=== PATIENT | male | born 1945 | race American Indian/Alaskan Native ===

== ENCOUNTER 2020-07-21 18:02 | Emergency (ER) | payer MEDICARE ==
[2020-07-21] MEDS ORDERED: SODIUM CHLORIDE 0.9% 1000 ML IV SOLN IV ONE (20:27)
--- NOTE | 2020-07-21 20:33 | Emergency Department Report ---
ED Altered Mental Status HPI - General Chief Complaint: Altered Mental Status Stated Complaint: AMS Time Seen by Provider: 07/21/20 20:05 Source: EMS Mode of arrival: Stretcher Limitations: Altered Mental Status - History of Present Illness Initial Comments: 74-year-old male unknown past medical history, presents to ED via EMS. EMS reports patient suffered a fall 2 weeks ago, and has had altered mental status since. It is unclear what patient's baseline mental status is. Patient is alert, however he is confused, poor historian. There is not currently any family information available. MD Complaint: altered mental status -: week(s) (2) Severity: Unable to Determine Consistency of Symptoms: unknown - Related Data Allergies Allergy/AdvReac Type Severity Reaction Status Date / Time Unable to Assess Allergy Unverified 07/21/20 20:10 ED Review of Systems ROS: Stated complaint: AMS Other details as noted in HPI Comment: Unobtainable due to pts medical conditions (Patient is confused) ED Physical Exam - General Limitations: Altered Mental Status General appearance: alert, in no apparent distress - Head Head exam: Present: atraumatic, normocephalic - Eye Eye exam: Present: normal appearance, EOMI - ENT ENT exam: Present: mucous membranes dry - Neck Neck exam: Present: normal inspection - Respiratory Respiratory exam: Present: normal lung sounds bilaterally. Absent: respiratory distress - Cardiovascular Cardiovascular Exam: Present: normal rhythm, tachycardia - GI/Abdominal GI/Abdominal exam: Present: soft. Absent: distended, tenderness - Extremities Exam Extremities exam: Present: normal inspection, other (moving all extremities except right leg; pain with passive movement of right leg) - Neurological Exam Neurological exam: Present: alert, altered. Absent: oriented X3 (oriented to self) - Psychiatric Psychiatric exam: Present: normal affect, normal mood - Skin Skin exam: Present: warm, dry, intact, normal color ED Course Vital Signs 07/21/20 07/21/20 07/21/20 19:44 20:01 20:21 Temperature Pulse Rate 112 H 116 H 109 H Respiratory 19 13 20 Rate Blood Pressure Blood Pressure 136/92 [Right] O2 Sat by Pulse 100 Oximetry 07/21/20 07/21/20 07/21/20 20:31 21:01 21:31 Temperature 97.7 F Pulse Rate 116 H 106 H 108 H Respiratory 17 13 14 Rate Blood Pressure 136/92 136/92 136/92 Blood Pressure [Right] O2 Sat by Pulse Oximetry 07/21/20 07/21/20 07/21/20 22:01 23:07 23:31 Temperature Pulse Rate 108 H Respiratory 16 15 Rate Blood Pressure 136/92 136/92 120/68 Blood Pressure [Right] O2 Sat by Pulse 95 100 Oximetry 07/22/20 02:21 Temperature Pulse Rate Respiratory 18 Rate Blood Pressure Blood Pressure [Right] O2 Sat by Pulse Oximetry - Reevaluation(s) Reevaluation #1: 07/21/20 21:50 Contact phone number listed on chart ([phone]) is disconnected. - Consultations Consultation #1: 07/22/20 01:[address] Payton, on-call [place] physician. Would like repeat lactic acid level. 07/22/20 01:54 Dr. Payton aware of repeat lactic acid of 3.7. I also informed her that we do not have orthopedic surgery on-call. States she will contact [employer] and call back. 07/22/20 03:[address] Payton. They will accept transfer to [facility]. Dr. Fisher will be accepting physician. - Lab Data Result diagrams: 07/21/20 21:01 07/21/20 21:01 Lab Results 07/21/20 07/21/20 07/21/20 Range/Units 21:01 21:01 21:01 WBC 13.6 H (4.5-11.0) K/mm3 RBC 5.14 H (3.65-5.03) M/mm3 Hgb 12.2 (11.8-15.2) gm/dl Hct 38.9 (35.5-45.6) % MCV 76 L (84-94) fl MCH 24 L (28-32) pg MCHC 31 L (32-34) % RDW 17.8 H (13.2-15.2) % Plt Count 349 (140-440) K/mm3 Lymph % (Auto) 12.1 L (13.4-35.0) % Forrest % (Auto) 6.1 (0.0-7.3) % Eos % (Auto) 0.0 (0.0-4.3) % Baso % (Auto) 0.6 (0.0-1.8) % Lymph # (Auto) 1.7 (1.2-5.4) K/mm3 Forrest # (Auto) 0.8 (0.0-0.8) K/mm3 Eos # (Auto) 0.0 (0.0-0.4) K/mm3 Baso # (Auto) 0.1 (0.0-0.1) K/mm3 Seg Neutrophils % 81.2 H (40.0-70.0) % Seg Neutrophils # 11.1 H (1.8-7.7) K/mm3 APTT (24.2-36.6) Sec. Sodium 156 H (137-145) mmol/L Potassium 4.2 (3.6-5.0) mmol/L Chloride 113.7 H (98-107) mmol/L Carbon Dioxide 23 (22-30) mmol/L Anion Gap 24 mmol/L BUN 33 H (9-20) mg/dL Creatinine 0.9 (0.8-1.3) mg/dL Estimated GFR > 60 ml/min BUN/Creatinine Ratio 37 % Glucose 486 H (75-100) mg/dL POC Glucose (70-105) mg/dL Lactic Acid 4.40 H* (0.7-2.0) mmol/L Calcium 9.6 (8.4-10.2) mg/dL Total Bilirubin 0.30 (0.1-1.2) mg/dL AST 21 (5-40) units/L ALT 24 (7-56) units/L Alkaline Phosphatase 153 H (35-129) units/L Troponin T 0.076 H (0.00-0.029) ng/mL Total Protein 7.4 (6.3-8.2) g/dL Albumin 3.5 L (3.9-5) g/dL Albumin/Globulin Ratio 0.9 % Triglycerides 140 (2-149) mg/dL Cholesterol 182 (50-199) mg/dL LDL Cholesterol Direct 78 (50-130) mg/dL HDL Cholesterol 69 H (40-59) mg/dL Cholesterol/HDL Ratio 2.63 % Urine Color (Yellow) Urine Turbidity (Clear) Urine pH (5.0-7.0) Ur Specific [place] (1.003-1.030) Urine Protein (Negative) mg/dL Urine Glucose (UA) (Negative) mg/dL Urine Ketones (Negative) mg/dL Urine Blood (Negative) Urine Nitrite (Negative) Urine Bilirubin (Negative) Urine Urobilinogen (<2.0) mg/dL Ur Leukocyte Esterase (Negative) Urine WBC (Auto) (0.0-6.0) /HPF Urine RBC (Auto) (0.0-6.0) /HPF Urine Bacteria (Auto) (Negative) /HPF Hyaline Casts /LPF Urine Mucus /HPF 07/21/20 07/21/20 07/22/20 Range/Units 21:01 21:50 00:59 WBC (4.5-11.0) K/mm3 RBC (3.65-5.03) M/mm3 Hgb (11.8-15.2) gm/dl Hct (35.5-45.6) % MCV (84-94) fl MCH (28-32) pg MCHC (32-34) % RDW (13.2-15.2) % Plt Count (140-440) K/mm3 Lymph % (Auto) (13.4-35.0) % Forrest % (Auto) (0.0-7.3) % Eos % (Auto) (0.0-4.3) % Baso % (Auto) (0.0-1.8) % Lymph # (Auto) (1.2-5.4) K/mm3 Forrest # (Auto) (0.0-0.8) K/mm3 Eos # (Auto) (0.0-0.4) K/mm3 Baso # (Auto) (0.0-0.1) K/mm3 Seg Neutrophils % (40.0-70.0) % Seg Neutrophils # (1.8-7.7) K/mm3 APTT 27.1 (24.2-36.6) Sec. Sodium (137-145) mmol/L Potassium (3.6-5.0) mmol/L Chloride (98-107) mmol/L Carbon Dioxide (22-30) mmol/L Anion Gap mmol/L BUN (9-20) mg/dL Creatinine (0.8-1.3) mg/dL Estimated GFR ml/min BUN/Creatinine Ratio % Glucose (75-100) mg/dL POC Glucose (70-105) mg/dL Lactic Acid 3.70 H* (0.7-2.0) mmol/L Calcium (8.4-10.2) mg/dL Total Bilirubin (0.1-1.2) mg/dL AST (5-40) units/L ALT (7-56) units/L Alkaline Phosphatase (35-129) units/L Troponin T (0.00-0.029) ng/mL Total Protein (6.3-8.2) g/dL Albumin (3.9-5) g/dL Albumin/Globulin Ratio % Triglycerides (2-149) mg/dL Cholesterol (50-199) mg/dL LDL Cholesterol Direct (50-130) mg/dL HDL Cholesterol (40-59) mg/dL Cholesterol/HDL Ratio % Urine Color Yellow (Yellow) Urine Turbidity Clear (Clear) Urine pH 5.0 (5.0-7.0) Ur Specific [place] 1.033 H (1.003-1.030) Urine Protein 30 mg/dl (Negative) mg/dL Urine Glucose (UA) >=500 (Negative) mg/dL Urine Ketones 20 (Negative) mg/dL Urine Blood Sm (Negative) Urine Nitrite Neg (Negative) Urine Bilirubin Neg (Negative) Urine Urobilinogen 2.0 (<2.0) mg/dL Ur Leukocyte Esterase Neg (Negative) Urine WBC (Auto) 1.0 (0.0-6.0) /HPF Urine RBC (Auto) 2.0 (0.0-6.0) /HPF Urine Bacteria (Auto) 1+ (Negative) /HPF Hyaline Casts 3 /LPF Urine Mucus Few /HPF 07/22/20 Range/Units 01:42 WBC (4.5-11.0) K/mm3 RBC (3.65-5.03) M/mm3 Hgb (11.8-15.2) gm/dl Hct (35.5-45.6) % MCV (84-94) fl MCH (28-32) pg MCHC (32-34) % RDW (13.2-15.2) % Plt Count (140-440) K/mm3 Lymph % (Auto) (13.4-35.0) % Forrest % (Auto) (0.0-7.3) % Eos % (Auto) (0.0-4.3) % Baso % (Auto) (0.0-1.8) % Lymph # (Auto) (1.2-5.4) K/mm3 Forrest # (Auto) (0.0-0.8) K/mm3 Eos # (Auto) (0.0-0.4) K/mm3 Baso # (Auto) (0.0-0.1) K/mm3 Seg Neutrophils % (40.0-70.0) % Seg Neutrophils # (1.8-7.7) K/mm3 APTT (24.2-36.6) Sec. Sodium (137-145) mmol/L Potassium (3.6-5.0) mmol/L Chloride (98-107) mmol/L Carbon Dioxide (22-30) mmol/L Anion Gap mmol/L BUN (9-20) mg/dL Creatinine (0.8-1.3) mg/dL Estimated GFR ml/min BUN/Creatinine Ratio % Glucose (75-100) mg/dL POC Glucose 363 H (70-105) mg/dL Lactic Acid (0.7-2.0) mmol/L Calcium (8.4-10.2) mg/dL Total Bilirubin (0.1-1.2) mg/dL AST (5-40) units/L ALT (7-56) units/L Alkaline Phosphatase (35-129) units/L Troponin T (0.00-0.029) ng/mL Total Protein (6.3-8.2) g/dL Albumin (3.9-5) g/dL Albumin/Globulin Ratio % Triglycerides (2-149) mg/dL Cholesterol (50-199) mg/dL LDL Cholesterol Direct (50-130) mg/dL HDL Cholesterol (40-59) mg/dL Cholesterol/HDL Ratio % Urine Color (Yellow) Urine Turbidity (Clear) Urine pH (5.0-7.0) Ur Specific [place] (1.003-1.030) Urine Protein (Negative) mg/dL Urine Glucose (UA) (Negative) mg/dL Urine Ketones (Negative) mg/dL Urine Blood (Negative) Urine Nitrite (Negative) Urine Bilirubin (Negative) Urine Urobilinogen (<2.0) mg/dL Ur Leukocyte Esterase (Negative) Urine WBC (Auto) (0.0-6.0) /HPF Urine RBC (Auto) (0.0-6.0) /HPF Urine Bacteria (Auto) (Negative) /HPF Hyaline Casts /LPF Urine Mucus /HPF - EKG Data -: EKG Interpreted by Me EKG shows normal: sinus rhythm, axis, intervals, QRS complexes Rate: tachycardia (rate 117) Interpretation: other (Slight anterior ST depression likely secondary to tachycardia) - Radiology Data Radiology results: report reviewed, image reviewed - Medical Decision Making 74-year-old male sent to ED by family with report of altered mental status x2 w eeks since suffering a fall. No family available for questioning. Phone number that is listed is disconnected. It is unclear what patient's baseline mental status is. He is alert, able to state his name, but is obviously confused. Patient moving all extremities except for his right leg. Due to history of fall, portable chest and pelvis were ordered. Pelvis films show right femoral neck fracture. Due to this trauma, it was decided to [place] scan patient with CT head, C-spine, chest, abdomen, and pelvis. Scans revealed left lateral seventh through 12th rib fractures in addition to comminuted right femoral neck fracture. No evidence of pneumonia, pulmonary contusion, pneumothorax in the chest. UA is essentially negative for infection. Patient is afebrile, however has white count of 13, lactic acid of 4.4, sodium of 156, glucose of 486. Patient obviously dehydrated. Patient given 30/kg dose of normal saline bolus. Blood cultures were drawn and patient was given cefepime to cover for any possible infection. Insulin bolus given, patient does not appear to be in DKA. Vitals have been stable. Spoke with Roseann on-call physician, who has arranged for patient to be transferred to [facility]. States accepting physician will be Dr. Fisher. Awaiting transportation. - Differential Diagnosis Dehydration, renal failure, UTI, pneumonia, fracture, intracranial abnormal Critical care attestation.: If time is entered above; I have spent that time in minutes in the direct care of this critically ill patient, excluding procedure time. ED Disposition Clinical Impression: Hyperglycemia, Altered mental status, Dehydration, Hypernatremia, Fracture of femoral neck, right, closed, Multiple fractures of ribs of left side, Elevated troponin, Lactic acidosis, SIRS (systemic inflammatory response syndrome) Disposition: DC/TX-70 ANOTHER TYPE HLTHCARE Is pt being admited?: No Condition: Stable Referrals: ROSEANN HENRY [Other] - 3-5 Days Time of Disposition: 03:16
[2020-07-21 21:19] LABS: Basophils # (Auto) 0.1 K/mm3 (0.0-0.1); Basophils % (Auto) 0.6 % (0.0-1.8); Hematocrit 38.9 % (35.5-45.6); Hemoglobin 12.2 gm/dl (11.8-15.2); Lymphocytes # (Auto) 1.7 K/mm3 (1.2-5.4); Lymphocytes % (Auto) 12.1 % (13.4-35.0); Mean Corpuscular HGB Conc 31 % (32-34); Mean Corpuscular Volume 76 fl (84-94); Monocytes # (Auto) 0.8 K/mm3 (0.0-0.8); Monocytes % (Auto) 6.1 % (0.0-7.3); Platelet Count 349 K/mm3 (140-440); Red Blood Count 5.14 M/mm3 (3.65-5.03); Red Cell Distribution Width 17.8 % (13.2-15.2)
[2020-07-21 21:40] LABS: Alanine Aminotransferase 24 units/L (7-56); Albumin 3.5 g/dL (3.9-5); BUN/Creatinine Ratio 37; Blood Urea Nitrogen 33 mg/dL (9-20); Calcium 9.6 mg/dL (8.4-10.2); Hemolysis Index 17
[2020-07-21] MEDS ORDERED: CEFEPIME/NS 2 GM/100 ML 2 GM/100 ML BAG IV ONE (21:48)
[2020-07-21] MEDS ORDERED: INSULIN REGULAR, HUMAN 100 UNIT/ML 3ML VIAL IV ONE (21:49)
[2020-07-21 22:04] LABS: Chol/HDL Ratio 2.63 %; HDL Cholesterol 69 mg/dL (40-59); LDL Cholesterol,Direct 78 mg/dL (50-130)
--- NOTE | 2020-07-21 22:07 | XRay Report ---
PELVIS 1 VIEW(S) INDICATION / CLINICAL INFORMATION: FALL COMPARISON: None available. FINDINGS: BONES / JOINT(S): Irregularity at the femoral head/femoral head neck junction concerning for acute urias bcapital or capital femoral head fracture. Femoral neck appears mildly shortened. There is slight sup erior migration of the femoral shaft. No significant arthritis. SOFT TISSUES: No significant abnormality. ADDITIONAL FINDINGS: None. Signer Name: Shaan Hernandez MD Signed: 07/21/2020 10:02 PM Workstation Name: [id number]
--- NOTE | 2020-07-21 22:07 | XRay Report ---
CHEST 1 VIEW INDICATION / CLINICAL INFORMATION: AMS. COMPARISON: None available. FINDINGS: SUPPORT DEVICES: None. HEART / MEDIASTINUM: No significant abnormality. LUNGS / PLEURA: No significant pulmonary or pleural abnormality. No pneumothorax. ADDITIONAL FINDINGS: No significant additional findings. IMPRESSION: 1. No acute findings. Signer Name: Shaan Hernandez MD Signed: 07/21/2020 10:03 PM Workstation Name: [id number]
[2020-07-21] MEDS ORDERED: INSULIN REGULAR, HUMAN 100 UNITS/1 ML ONE (22:30)
[2020-07-21 22:36] LABS: Bacteria,Urine 1+ /HPF (Negative); Bilirubin,Urine NEG (Negative); Blood,Urine SM (Negative); Color,Urine Yellow (Yellow); Hyaline Casts,Urine 3 /LPF; Mucus,Urine FEW /HPF
--- NOTE | 2020-07-21 23:04 | Cat Scan Report ---
. CT head/brain wo con INDICATION / CLINICAL INFORMATION: 74 years Male; Altered mental status, fall. TECHNIQUE: Routine CT head without contrast. All CT scans at this location are performed using CT dos e reduction for ALARA by means of automated exposure control. Motion artifact COMPARISON: None. FINDINGS: BRAIN / INTRACRANIAL CONTENTS: No acute hemorrhage, mass effect, midline shift, hydrocephalus, or acu te, large territorial infarct. Moderate cerebral atrophy noted. Mild to moderate degree of hippocampal atrophy suggested bilaterally . Punctate lacunar infarcts suggested in the right thalamic region. There are moderate to extensive, confluent areas of decreased attenuation in the white matter of the cerebral hemispheres, as well as the gangliocapsular regions. These are nonspecific findings and may be related to microangiopathy (hypertension, diabetes, atherosclerosis), given the patient's age. CRANIOCERVICAL JUNCTION: No significant abnormality. ORBITS: No significant abnormality of visualized orbits. SINUSES / MASTOIDS: No significant abnormality in the visualized paranasal sinuses or mastoid air jasmyne ls. ADDITIONAL FINDINGS: Subcutaneous soft tissue swelling seen in the occipital region. No signs of unde rlying calvarial fracture appreciated. IMPRESSION: 1. No focal mass, hemorrhage, hydrocephalus, or acute, large territorial infarct. Signer Name: George Florence MD, III Signed: 07/21/2020 10:59 PM Workstation Name: [id number]
--- NOTE | 2020-07-21 23:27 | Cat Scan Report ---
CT cervical spine wo con INDICATION / CLINICAL INFORMATION: fall, AMS. TECHNIQUE: Axial CT imaging of cervical spine was obtained without contrast. Coronal and sagittal reformatted im aging obtained and reviewed. All CT scans at this location are performed using CT dose reduction for ALARA by means of automated exposure control. COMPARISON: None available. FINDINGS: No cervical spine fracture or traumatic malalignment. There is mild multilevel degenerative disc dise ase, most notable at C3-C5. Slightly prominent posterior osteophytes are noted at C3-C4 and C4-C5. Mi ld diffuse spondylytic changes present throughout the spine. Alignment is normal. Surrounding paravertebral soft tissues are unremarkable. Visualized lung apices are clear. IMPRESSION: 1. No evidence for cervical spine fracture or traumatic malalignment. 2. Multilevel degenerative disc disease with associated prominent spondylitic change. Signer Name: Criss Medeiros MD Signed: 07/21/2020 11:23 PM Workstation Name: [id number]
--- NOTE | 2020-07-21 23:41 | Cat Scan Report ---
CT abdomen pelvis w con, CT chest w con INDICATION / CLINICAL INFORMATION: fall, AMS. TECHNIQUE: Axial CT imaging of chest, abdomen and pelvis was obtained with IV contrast. Coronal and sagittal ref ormatted imaging obtained and reviewed. All CT scans at this location are performed using CT dose re duction for ALARA by means of automated exposure control. COMPARISON: None available. FINDINGS: CT chest with contrast does not reveal any mediastinal or hilar adenopathy. Thoracic aorta contains a small amount of calcific plaque but is otherwise unremarkable. No evidence of aortic aneurysm or dis section. There is a small pericardial effusion present. Heart is of normal size. Both lungs are well- expanded and clear. No evidence for pulmonary mass, airspace disease, or pleural effusion. CT abdomen with contrast demonstrates normal appearance of the liver, spleen, pancreas, left kidney, and adrenal glands. There is a 5 cm simple cyst arising from the right kidney. Gallbladder is present and without obvious abnormality. No biliary dilatation. The abdominal aorta contains small amount of calcific plaque and a small amount of mural thrombus. CT pelvis with contrast demonstrates fairly large fecal impaction within the rectum. The rectum has a measurement of 7.2 cm transversely. No pelvic mass, free fluid, or focal inflammatory changes noted. Zhong catheter is present within the urinary bladder. A normal appendix is present within the right lower quadrant. GI tract is unremarkable. Review of osseous structures demonstrates nondisplaced fractures of the left posterior lateral 7th th rough 11th ribs. No associated pneumothorax or pulmonary contusion. Additionally there is nondisplaced comminuted fracture involving the right femoral neck. IMPRESSION: 1. Nondisplaced right femoral neck comminuted fracture. 2. Multiple left posterior lateral rib fractures, including 7th through 11th ribs -no pneumothorax o r visible pulmonary contusion. 3. No soft tissue traumatic injury within the chest, abdomen, or pelvis. 4. incidental finding of large fecal impaction. Signer Name: Criss Medeiros MD Signed: 07/21/2020 11:36 PM Workstation Name: [id number]
[2020-07-21] MEDS ORDERED: MORPHINE 2 MG/1 ML INJ IV ONE (23:56)
[2020-07-22] MEDS ORDERED: SODIUM CHLORIDE 0.9% 1000 ML 1,000 ML ONE ×2 (01:27)
[2020-07-22] MEDS ORDERED: MORPHINE 2 MG/1 ML INJ ONE ×2 (02:18→05:25)
[2020-07-22 05:32] VITALS: BP 175/91
[2020-07-22] MEDS ORDERED: MORPHINE 2 MG/1 ML INJ IV ONE (05:41)
== END 2020-07-22 06:20 | disposition other institution (70) ==
LOC: ED 18:02
DX: R73.9 Hyperglycemia, unspecified (principal); R41.82 Altered mental status, unspecified; E87.0 Hyperosmolality and hypernatremia; S27.899A Unspecified injury of other specified intrathoracic organs, initial encounter; S12.8XXA Fracture of other parts of neck, initial encounter; S22.42XA Multiple fractures of ribs, left side, initial encounter for closed fracture; R77.8 Other specified abnormalities of plasma proteins; E87.2 Acidosis; R65.10 Systemic inflammatory response syndrome (SIRS) of non-infectious origin without acute organ dysfunction; X50.9XXA Other and unspecified overexertion or strenuous movements or postures, initial encounter; Y93.89 Activity, other specified; Y92.89 Other specified places as the place of occurrence of the external cause; Y99.8 Other external cause status
CPT/HCPCS: 36415; 70450; 71045; 71260; 72125; 72170; 74177; 80053; 80061; 81001; 82140; 82962; 84484; 85025; 85730; 87040; 93005; 96361; 96365; 96375; 96376; 99285; J0692; J2270; J7030; Q9967; J1815